=== PATIENT | female | born 2000 | race Two or more races ===

== ENCOUNTER 2024-01-02 12:46 | Emergency (ER) | payer OTHER ==
[~2024-01-02] VITALS: Ht 152.4 cm; Wt 54.4 kg
[2024-01-02 14:44] LABS: HEMATOCRIT 37.3 % (36.0-45.00); HEMOGLOBIN 12.8 g/dL (12.0-15.00); MEAN CELL VOLUME 88.7 fL (80.00-100.00); MEAN CORPUSCULAR HEMOGLOBIN 30.5 pg (27.00-32.0); MEAN CORPUSCULAR HGB CONC 34.4 g/dl (32.0-36.0); PLATELET COUNT 244 K/uL (150-450); RED CELL DISTRIBUTION WIDTH 12.9 % (11.5-14.5)
[2024-01-02 15:06] LABS: CALCIUM 9.7 mg/dL (8.5-10.1); CREATININE SERUM 0.38 mg/dL (0.55-1.02); GFR 211.77; INR 0.98; PARTIAL THROMBOPLASTIN TIME 25.9 SECONDS (22.0-34.0); POTASSIUM 3.59 mEq/L (3.5-5.1); PROTHROMBIN TIME 10.3 SECONDS (9.0-11.5)
[2024-01-02 15:18] LABS: PH,URINE 5.5 (5.0-8.0); URINE APPEARANCE Cloudy; URINE BILIRRUBIN Negative (NEGATIVE); URINE BLOOD Large; URINE COLOR Yellow; URINE GLUCOSE Negative (NEGATIVE); URINE LEUKOCYTE Moderate; URINE NITRATE Negative; URINE PROTEIN Negative (NEGATIVE); URINE UROBILINOGEN 0.2 E.U./dl
[2024-01-02 15:21] LABS: URINE BACTERIA 5697.6 uL (0.0-1933); URINE EPITHELIAL CELLS 190.7 uL (0.0-38.8); URINE RBC 9.3 uL (0.0-20.8); URINE WBC 85.9 uL (0.0-23.2)
[2024-01-02 15:37] LABS: URINE CRYSTALS MODERATE /HPF; URINE MUCUS MODERATE
[2024-01-02] MEDS ORDERED: MACROBID 100 M100 MG PO (18:21)
== END 2024-01-02 19:02 ==
LOC: ER 12:46
PROVIDERS: Nurse Practitioner Family
DX: O20.8 Other hemorrhage in early pregnancy (principal); Z3A.13 13 weeks gestation of pregnancy; N39.0 Urinary tract infection, site not specified; Z88.1 Allergy status to other antibiotic agents

== ENCOUNTER 2024-02-20 13:50 | Outpatient (CLI) | payer OTHER ==
[~2024-02-20 13:50] MED LIST: MACROBID 100 M100 MG PO
== END 2024-02-20 13:53 | disposition home or self-care (01) ==
LOC: PRENATAL 13:50
PROVIDERS: ATTEND Obstetrics & Gynecology Maternal & Fetal Medicine
DX: O35.3XX0 Maternal care for (suspected) damage to fetus from viral disease in mother, not applicable or unspecified (principal); O44.00 Complete placenta previa NOS or without hemorrhage, unspecified trimester; Z3A.20 20 weeks gestation of pregnancy

== ENCOUNTER 2024-06-05 12:55 | Outpatient (CLI) | payer OTHER | END 2024-06-05 12:57 | disposition home or self-care (01) | LOC: PRENATAL 12:55 | PROVIDERS: ATTEND Obstetrics & Gynecology Maternal & Fetal Medicine | DX: O26.843 Uterine size-date discrepancy, third trimester (principal); O36.8130 Decreased fetal movements, third trimester, not applicable or unspecified; O36.5930 Maternal care for other known or suspected poor fetal growth, third trimester, not applicable or unspecified; Z3A.35 35 weeks gestation of pregnancy ==

== ENCOUNTER 2024-07-02 18:39 | Inpatient (IN) | payer OTHER ==
[~2024-07-02] VITALS: Ht 152.4 cm; Wt 68.9 kg
[2024-07-02 18:39] VITALS: BP 115/66
[2024-07-02] MEDS ORDERED: PRENATAL TABLE1 EAC4 PO (19:20)
[2024-07-02 19:36] LABS: PH,URINE 7.5 (5.0-8.0); URINE APPEARANCE Cloudy; URINE BILIRRUBIN Negative (NEGATIVE); URINE BLOOD Negative; URINE COLOR Yellow; URINE KETONE Negative (NEGATIVE); URINE LEUKOCYTE Large; URINE NITRATE Negative; URINE PROTEIN Trace (NEGATIVE); URINE UROBILINOGEN 0.2 E.U./dl
[2024-07-02 19:40] LABS: URINE BACTERIA 3028.8 uL (0.0-1933); URINE EPITHELIAL CELLS 102.6 uL (0.0-38.8); URINE RBC 12.5 uL (0.0-20.8)
[2024-07-02 19:47] LABS: HEMATOCRIT 36.4 % (36.0-45.00); HEMOGLOBIN 12.4 g/dL (12.0-15.00); MEAN CELL VOLUME 89.8 fL (80.00-100.00); MEAN CORPUSCULAR HEMOGLOBIN 30.7 pg (27.00-32.0); MEAN CORPUSCULAR HGB CONC 34.2 g/dl (32.0-36.0); PLATELET COUNT 219 K/uL (150-450); RED BLOOD COUNT 4.05 M/uL (4.00-6.00); RED CELL DISTRIBUTION WIDTH 15.4 % (11.5-14.5)
[2024-07-02 20:14] LABS: INR 0.96; PARTIAL THROMBOPLASTIN TIME 27.1 SECONDS (22.0-34.0); PROTHROMBIN TIME 10.5 SECONDS (9.0-11.5); URINE CAST 0.45 uL (0.0-1.40); URINE GLUCOSE 100 MG/DL (NEGATIVE)
[2024-07-02] MEDS ORDERED: MISOPROSTOL 25 MCG TABLET ONE ×2 (21:27→21:34)
[2024-07-02] MEDS ORDERED: MEPERIDINE HCL/PF 50 MG/ML VIAL IV NR (22:00)
[2024-07-02] MEDS ORDERED: PROMETHAZINE HCL 25 MG/ML AMPUL IV NR (22:00)
[2024-07-02] MEDS ORDERED: MISOPROSTOL 25 MCG TABLET VAG ONE ×2 (22:15→22:45)
[2024-07-02 23:23] VITALS: BP 113/61
[2024-07-03 03:10] VITALS: BP 107/57
[2024-07-03 07:41] VITALS: BP 101/54
[2024-07-03 11:08] VITALS: BP 106/52
[2024-07-03] MEDS ORDERED: MISOPROSTOL 50 MCG TABLET ONE (11:24)
[2024-07-03] MEDS ORDERED: MISOPROSTOL 50 MCG TABLET VAG STA (11:27)
[2024-07-03 15:37] VITALS: BP 100/66
[2024-07-03] MEDS ORDERED: OXYTOCIN 10 UNITS/ML VIAL ONE ×2 (17:15→19:25)
[2024-07-03] MEDS ORDERED: ERYTHROMYCIN BASE 1 GM TUBE OP ONE (17:15)
[2024-07-03] MEDS ORDERED: CEFAZOLIN SODIUM 1,000 MG VIAL ONE (17:19)
[2024-07-03] MEDS ORDERED: KETOROLAC TROMETHAMINE 60 MG VIAL IM STA (19:17)
[2024-07-03] MEDS ORDERED: RINGERS SOLUTION,LACTATED 1,000 ML IV SCH (19:30)
[2024-07-03] MEDS ORDERED: PROMETHAZINE HCL 25 MG/ML AMPUL IM PRN (19:30)
[2024-07-03] MEDS ORDERED: CHLORHEXIDINE GLUCONATE 120 ML BOTTLE TOP SCH (19:30)
[2024-07-03] MEDS ORDERED: ERYTHROMYCIN BASE 1 GM TUBE OP SCH (19:30)
[2024-07-03] MEDS ORDERED: OXYTOCIN 1,000 ML IV SCH (19:30)
[2024-07-03] MEDS ORDERED: MEPERIDINE HCL/PF 50 MG/ML VIAL IM PRN (19:30)
[2024-07-03] MEDS ORDERED: KETOROLAC TROMETHAMINE 60 MG VIAL IM ONE (20:15)
[2024-07-03 20:43] VITALS: BP 108/62
[2024-07-04] VITALS: BP 97/60
[2024-07-04 00:44] LABS: HEMATOCRIT 33.7 % (36.0-45.00); HEMOGLOBIN 11.3 g/dL (12.0-15.00); MEAN CELL VOLUME 91.4 fL (80.00-100.00); MEAN CORPUSCULAR HEMOGLOBIN 30.6 pg (27.00-32.0); MEAN CORPUSCULAR HGB CONC 33.5 g/dl (32.0-36.0); PLATELET COUNT 170 K/uL (150-450); RED BLOOD COUNT 3.68 M/uL (4.00-6.00); RED CELL DISTRIBUTION WIDTH 14.7 % (11.5-14.5)
[2024-07-04 08:00] VITALS: BP 104/67
[2024-07-04] MEDS ORDERED: OxyCODONE HCL/APAP UD (PERCOCET) PO PRN (09:00)
[2024-07-04 15:35] VITALS: BP 99/61
[2024-07-05 01:05] VITALS: BP 103/64
[2024-07-05 05:44] VITALS: BP 109/69
[2024-07-05 09:26] VITALS: BP 100/65
[2024-07-05] MEDS ORDERED: BISACODYL 10 MG/SUPP.RECT SUPP.RECT RECTAL NR (11:00)
[2024-07-05 16:07] VITALS: BP 99/62
[2024-07-06 01:14] VITALS: BP 106/66
[2024-07-06 09:00] VITALS: BP 100/64
== END 2024-07-06 13:37 | disposition home or self-care (01) | DRG 788 ==
LOC: LDR 18:39 → O/R 07-03 18:16 → OB/GYN 07-03 19:14
PROVIDERS: ADMIT Obstetrics & Gynecology; ATTEND Obstetrics & Gynecology
PROC: 3E0P7VZ Introduction of Hormone into Female Reproductive, Via Natural or Artificial Opening (ICD-10-PCS; 2024-07-02)
PROC: 4A1HXCZ Monitoring of Products of Conception, Cardiac Rate, External Approach (ICD-10-PCS; 2024-07-02)
PROC: 3E033VJ Introduction of Other Hormone into Peripheral Vein, Percutaneous Approach (ICD-10-PCS; 2024-07-03)
PROC: 10D00Z1 Extraction of Products of Conception, Low, Open Approach (ICD-10-PCS; principal; 2024-07-03 18:15)
DX: O61.0 Failed medical induction of labor (principal); O82 Encounter for cesarean delivery without indication; Z3A.39 39 weeks gestation of pregnancy; Z37.0 Single live birth; Z20.822 Contact with and (suspected) exposure to COVID-19